=== PATIENT | male | born 1960 | race Caucasian/White ===

== ENCOUNTER 2017-02-18 14:37 | Emergency (ER) | payer MEDICARE ==
[~2017-02-18 14:37] MED LIST: TENORMIN 25 MG25 MG PO
[2017-02-18 15:58] LABS: HEMOGLOBIN 15.8 gm/dl (14.0-17.5); RED BLOOD COUNT 5.39 M/UL (4.20-5.50); WHITE BLOOD COUNT 7.9 K/UL (4.5-11.0)
[2017-02-18 16:18] LABS: BUN/CREATININE RATIO 27 (0-10)
== END 2017-02-18 17:40 | disposition home or self-care (01) ==
LOC: ER1 14:37
PROVIDERS: Emergency Medicine
DX: R11.10 Vomiting, unspecified (principal); I10 Essential (primary) hypertension; Z88.2 Allergy status to sulfonamides; Z88.5 Allergy status to narcotic agent
CPT/HCPCS: 36415; 74022; 80053; 82962; 83690; 84484; 85025; 96374; 99284; J2405; J7030

== ENCOUNTER 2020-11-04 14:07 | Emergency (ER) | payer MEDICARE ==
[~2020-11-04 14:07] MED LIST changes: +ALDACTONE 25MG25 MG PO; +AMITRIPTYLINE H75 MG PO; +ASMANEX HFA13 G1 INH; +ASPIRIN EC325 MG PO; +ASPIRIN EC81 MG PO; +BRILINTA 90 MG90 MG PO; +BRINTELLIX20 MG PO; +BUMETANIDE2 MG PO; +CO Q-10100 MG PO; +CYCLOSET0.8 MG PO; +ELAVIL 25 MG TA25 MG PO; +FIORICET PO; +HUMALOG 10100 UNITS/ SC; +HUMALOG100 UNIT/2 SQ; +HUMALOG100 UNIT/3 SC; +IBU600 MG PO; +IBUPROFEN600 MG PO; +IMDUR ER TAB 3030 MG PO; +IMDUR ER TAB 6060 MG PO; +IPRAT-ALBUT 0.5-3 ML INH; +K-TAB ER20 MEQ PO; +KAPSPARGO SPRI100 MG PO; +LIPITOR80 MG PO; +LISINOPRIL5 MG PO; +LOPRESSOR50 MG PO; +NASALIDE INH SO25 ML; +NEURONTIN600 MG PO; +NORVASC10 MG PO; +PHENERGAN 25 MG25 M1 PO; +PREDNISONE20 MG PO; +RANEXA500 MG PO; +SPIRIVA RESPIMAT4 GM INH; +SYMBICORT 80-10.2 GM INH; +TOUJEO MAX300 UNIT/1 SQ; +TURMERIC CURCUMIN PO; +VENTOLIN HFA 66.7 GM INH; +VICTOZA 3-0.6 MG/0.1 SQ; +VITAMIN C500 M1 PO; +XYZAL5 MG PO; +ZANAFLEX 4 MG TA4 MG PO
[2020-11-04 15:29] LABS: HEMOGLOBIN 15.4 gm/dl (14.0-17.5); RED BLOOD COUNT 6.17 M/UL (4.20-5.50); WHITE BLOOD COUNT 8.3 K/UL (4.5-11.0)
[2020-11-04 15:50] LABS: BUN/CREATININE RATIO 27 (0-10)
[2021-01-02] MEDS ORDERED: KEPPRA1000 MG PO (13:47)
[2021-02-27] MEDS ORDERED: MAXIDEX5 ML AU (13:43)
[2021-02-27] MEDS ORDERED: CILOXAN 0.3% O2.5 ML AU (13:44)
[2021-03-05] MEDS ORDERED: NEURONTIN600 MG PO (05:55)
== END 2020-11-04 19:05 | disposition short-term general hospital (02) ==
LOC: ER1 14:07
PROVIDERS: Emergency Medicine
DX: I63.9 Cerebral infarction, unspecified (principal); R29.810 Facial weakness; G81.94 Hemiplegia, unspecified affecting left nondominant side; R29.703 NIHSS score 3; E87.1 Hypo-osmolality and hyponatremia; R79.89 Other specified abnormal findings of blood chemistry; I10 Essential (primary) hypertension; E11.9 Type 2 diabetes mellitus without complications; Z95.1 Presence of aortocoronary bypass graft; Z86.73 Personal history of transient ischemic attack (TIA), and cerebral infarction without residual deficits; Z20.822 Contact with and (suspected) exposure to COVID-19
CPT/HCPCS: 36415; 70450; 70496; 70498; 71045; 80053; 82550; 82553; 82962; 83874; 84484; 85025; 85610; 85730; 93005; 99285; Q9967; U0002

== ENCOUNTER 2020-11-19 17:28 | Emergency (ER) | payer MEDICARE ==
[2021-01-02] MEDS ORDERED: KEPPRA1000 MG PO (13:47)
[2021-02-27] MEDS ORDERED: MAXIDEX5 ML AU (13:43)
[2021-02-27] MEDS ORDERED: CILOXAN 0.3% O2.5 ML AU (13:44)
[2021-03-05] MEDS ORDERED: NEURONTIN600 MG PO (05:55)
== END 2020-11-19 18:27 | disposition admitted as inpatient to this hospital (09) ==
LOC: ER1 17:28
DX: S41.112A Laceration without foreign body of left upper arm, initial encounter (principal); E11.9 Type 2 diabetes mellitus without complications; Z79.4 Long term (current) use of insulin; Z95.1 Presence of aortocoronary bypass graft; Z79.82 Long term (current) use of aspirin; Z88.2 Allergy status to sulfonamides; Z88.5 Allergy status to narcotic agent; Z88.8 Allergy status to other drugs, medicaments and biological substances; Z91.041 Radiographic dye allergy status; X50.3XXA Overexertion from repetitive movements, initial encounter; Y92.009 Unspecified place in unspecified non-institutional (private) residence as the place of occurrence of the external cause
CPT/HCPCS: 99283

== ENCOUNTER 2020-12-09 14:24 | Emergency (ER) | payer MEDICARE ==
[2020-12-09 15:09] LABS: HEMOGLOBIN 13.1 gm/dl (14.0-17.5); RED BLOOD COUNT 5.08 M/UL (4.20-5.50); WHITE BLOOD COUNT 7.2 K/UL (4.5-11.0)
[2020-12-09 15:33] LABS: BUN/CREATININE RATIO 19 (0-10)
[2021-01-02] MEDS ORDERED: KEPPRA1000 MG PO (13:47)
[2021-02-27] MEDS ORDERED: MAXIDEX5 ML AU (13:43)
[2021-02-27] MEDS ORDERED: CILOXAN 0.3% O2.5 ML AU (13:44)
[2021-03-05] MEDS ORDERED: NEURONTIN600 MG PO (05:55)
== END 2020-12-09 16:30 | disposition home or self-care (01) ==
LOC: ER1 14:24
PROVIDERS: Emergency Medicine
DX: I63.9 Cerebral infarction, unspecified (principal); R29.810 Facial weakness
CPT/HCPCS: 70450; 80053; 82550; 82553; 82962; 83874; 84484; 85025; 85610; 85730; 93005; 96374; 99285; J2997; Q9967

== ENCOUNTER 2021-02-16 21:20 | Emergency (ER) | payer MEDICARE ==
[~2021-02-16 21:20] MED LIST changes: +KEPPRA1000 MG PO
[2021-02-16 22:08] LABS: HEMOGLOBIN 13.4 gm/dl (14.0-17.5); RED BLOOD COUNT 5.18 M/UL (4.20-5.50); WHITE BLOOD COUNT 7.1 K/UL (4.5-11.0)
[2021-02-16 22:28] LABS: BUN/CREATININE RATIO 18 (0-10)
[2021-02-16] MEDS ORDERED: IMITREX50 MG PO (23:39)
[2021-02-27] MEDS ORDERED: MAXIDEX5 ML AU (13:43)
[2021-02-27] MEDS ORDERED: CILOXAN 0.3% O2.5 ML AU (13:44)
[2021-03-05] MEDS ORDERED: NEURONTIN600 MG PO (05:55)
== END 2021-02-17 00:25 | disposition home or self-care (01) ==
LOC: ER1 21:20
PROVIDERS: Physician Assistant Medical
DX: R41.82 Altered mental status, unspecified (principal); R51.9 Headache, unspecified; E78.5 Hyperlipidemia, unspecified; I10 Essential (primary) hypertension; Z86.73 Personal history of transient ischemic attack (TIA), and cerebral infarction without residual deficits; Z95.1 Presence of aortocoronary bypass graft
CPT/HCPCS: 70450; 71045; 80053; 82550; 82553; 83874; 84484; 85025; 85610; 93005; 96374; 96375; 99285; J0780; J1885; J2060

== ENCOUNTER 2021-02-19 17:05 | Emergency (ER) | payer MEDICARE ==
[~2021-02-19] VITALS: Ht 177.8 cm; Wt 129.3 kg
[~2021-02-19 17:05] MED LIST changes: +IMITREX50 MG PO
[2021-02-19 18:10] LABS: HEMOGLOBIN 13.9 gm/dl (14.0-17.5); RED BLOOD COUNT 5.42 M/UL (4.20-5.50); WHITE BLOOD COUNT 6.4 K/UL (4.5-11.0)
[2021-02-19 18:30] LABS: BUN/CREATININE RATIO 12 (0-10)
[2021-02-27] MEDS ORDERED: MAXIDEX5 ML AU (13:43)
[2021-02-27] MEDS ORDERED: CILOXAN 0.3% O2.5 ML AU (13:44)
[2021-03-05] MEDS ORDERED: NEURONTIN600 MG PO (05:55)
== END 2021-02-20 19:00 | disposition home or self-care (01) ==
LOC: ER1 17:05
PROVIDERS: Internal Medicine
DX: G81.94 Hemiplegia, unspecified affecting left nondominant side (principal); E11.9 Type 2 diabetes mellitus without complications; J44.9 Chronic obstructive pulmonary disease, unspecified; I10 Essential (primary) hypertension; Z86.73 Personal history of transient ischemic attack (TIA), and cerebral infarction without residual deficits; Z90.49 Acquired absence of other specified parts of digestive tract; Z88.2 Allergy status to sulfonamides; Z88.5 Allergy status to narcotic agent
CPT/HCPCS: 70450; 70551; 80053; 82962; 84484; 85025; 85610; 85730; 93005; 96374; 96375; 99284; J0780; J1170; J1200

== ENCOUNTER 2021-03-02 15:27 | Emergency (ER) | payer MEDICARE ==
[~2021-03-02 15:27] MED LIST changes: +CILOXAN 0.3% O2.5 ML AU; +MAXIDEX5 ML AU
[2021-03-02 16:36] LABS: HEMOGLOBIN 13.1 gm/dl (14.0-17.5); RED BLOOD COUNT 5.33 M/UL (4.20-5.50)
[2021-03-02 16:55] LABS: BUN/CREATININE RATIO 20 (0-10)
[2021-03-02] MEDS ORDERED: PROTONIX40 MG PO (19:07)
[2021-03-02] MEDS ORDERED: IBUPROFEN800 MG PO (19:07)
[2021-03-05] MEDS ORDERED: NEURONTIN600 MG PO (05:55)
== END 2021-03-02 19:30 | disposition home or self-care (01) ==
LOC: ER1 15:27
PROVIDERS: Preventive Medicine Occupational Medicine
DX: S39.011A Strain of muscle, fascia and tendon of abdomen, initial encounter (principal); I25.10 Atherosclerotic heart disease of native coronary artery without angina pectoris; E11.9 Type 2 diabetes mellitus without complications; Z95.1 Presence of aortocoronary bypass graft; X58.XXXA Exposure to other specified factors, initial encounter; Z88.2 Allergy status to sulfonamides; Z88.5 Allergy status to narcotic agent; Z88.8 Allergy status to other drugs, medicaments and biological substances
CPT/HCPCS: 80053; 81001; 83690; 85025; 85652; 86140; 87086; 96374; 96375; 99284; J1170; J2405; J7030; Q9967

== ENCOUNTER 2021-03-05 09:11 | Observation (INO) | payer MEDICARE ==
[~2021-03-05] VITALS: Ht 177.8 cm; Wt 129.3 kg
[~2021-03-05 09:11] MED LIST changes: +IBUPROFEN800 MG PO; +PROTONIX40 MG PO
[2021-03-05 11:12] LABS: HEMOGLOBIN 13.7 gm/dl (14.0-17.5); RED BLOOD COUNT 5.29 M/UL (4.20-5.50); WHITE BLOOD COUNT 5.6 K/UL (4.5-11.0)
[2021-03-05 11:32] LABS: BUN/CREATININE RATIO 14 (0-10)
[2021-03-05] MEDS ORDERED: ACCOLATE20 MG PO (13:37)
[2021-03-05] MEDS ORDERED: ZESTRIL5 MG PO (13:38)
[2021-03-05] MEDS ORDERED: TOPROL XL200 MG PO (13:39)
[2021-03-05] MEDS ORDERED: HUMULIN R500 UNIT/1 SC (13:45)
[2021-03-05] MEDS ORDERED: AZELASTINE137 MCG/0. (13:48)
[2021-03-05] MEDS ORDERED: LAMICTAL25 MG PO (13:49)
[2021-03-05] MEDS ORDERED: VITAMIN E400 UNI1 PO (13:53)
[2021-03-05] MEDS ORDERED: DOCUSATE SODIU100 MG PO (13:53)
[2021-03-05] MEDS ORDERED: OZEMPIC1 MG/0.71 SC (22:23)
[2021-03-05] MEDS ORDERED: PLAVIX 75 MG TA75 MG PO (22:25)
[2021-03-05] MEDS ORDERED: DUPIXENT300 MG/2 M SQ (22:48)
[2021-03-05] MEDS ORDERED: OMEPRAZOLE20 MG PO (22:55)
[2021-03-06 03:46] LABS: HEMOGLOBIN 13.1 gm/dl (14.0-17.5); RED BLOOD COUNT 5.17 M/UL (4.20-5.50); WHITE BLOOD COUNT 6.9 K/UL (4.5-11.0)
[2021-03-06 04:28] LABS: BUN/CREATININE RATIO 14 (0-10)
[2021-03-07] MEDS ORDERED: IBUPROFEN800 MG PO (09:06)
== END 2021-03-07 16:14 | disposition home or self-care (01) ==
LOC: ER1 09:11 → CDU 11:52 → MED SURG 4 11:52
PROVIDERS: Physician Assistant; ADMIT Internal Medicine
DX: R20.0 Anesthesia of skin (principal); I25.10 Atherosclerotic heart disease of native coronary artery without angina pectoris; I25.5 Ischemic cardiomyopathy; E11.9 Type 2 diabetes mellitus without complications; I11.0 Hypertensive heart disease with heart failure; I50.22 Chronic systolic (congestive) heart failure; J44.9 Chronic obstructive pulmonary disease, unspecified; G43.909 Migraine, unspecified, not intractable, without status migrainosus; G40.909 Epilepsy, unspecified, not intractable, without status epilepticus; E78.5 Hyperlipidemia, unspecified; E66.2 Morbid (severe) obesity with alveolar hypoventilation; Z68.41 Body mass index [BMI] 40.0-44.9, adult; Z20.822 Contact with and (suspected) exposure to COVID-19; Z95.1 Presence of aortocoronary bypass graft; Z86.73 Personal history of transient ischemic attack (TIA), and cerebral infarction without residual deficits; Z79.82 Long term (current) use of aspirin; Z79.02 Long term (current) use of antithrombotics/antiplatelets; Z79.4 Long term (current) use of insulin; Z79.2 Long term (current) use of antibiotics; Z79.899 Other long term (current) drug therapy; Z95.5 Presence of coronary angioplasty implant and graft; Z88.2 Allergy status to sulfonamides; Z88.5 Allergy status to narcotic agent; Z88.8 Allergy status to other drugs, medicaments and biological substances; Z87.891 Personal history of nicotine dependence; Z87.09 Personal history of other diseases of the respiratory system
CPT/HCPCS: ECHO; 70450; 70551; 71045; 80048; 80053; 82550; 82553; 82962; 83874; 84484; 85025; 92610; 93005; 93306; 94640; 94664; 94760; 96374; 96376; 97161; 97165; 99285; G0378; J1170; U0002

== ENCOUNTER 2021-03-23 18:49 | Emergency (ER) | payer MEDICARE ==
[~2021-03-23 18:49] MED LIST changes: +ACCOLATE20 MG PO; +AZELASTINE137 MCG/0.; +DOCUSATE SODIU100 MG PO; +DUPIXENT300 MG/2 M SQ; +HUMULIN R500 UNIT/1 SC; +LAMICTAL25 MG PO; +OMEPRAZOLE20 MG PO; +OZEMPIC1 MG/0.71 SC; +PLAVIX 75 MG TA75 MG PO; +TOPROL XL200 MG PO; +VITAMIN E400 UNI1 PO; +ZESTRIL5 MG PO
[2021-03-23 20:28] LABS: RED BLOOD COUNT 5.42 M/UL (4.20-5.50); WHITE BLOOD COUNT 9.8 K/UL (4.5-11.0)
[2021-03-23 21:06] LABS: BUN/CREATININE RATIO 17 (0-10)
[2021-03-24] MEDS ORDERED: IBUPROFEN600 MG PO (00:12)
== END 2021-03-24 00:30 | disposition home or self-care (01) ==
LOC: ER1 18:49
PROVIDERS: Physician Assistant Medical
DX: R07.9 Chest pain, unspecified (principal); R11.2 Nausea with vomiting, unspecified; I11.9 Hypertensive heart disease without heart failure; J44.9 Chronic obstructive pulmonary disease, unspecified; Z90.49 Acquired absence of other specified parts of digestive tract
CPT/HCPCS: 71045; 80053; 82550; 82553; 83874; 83880; 84484; 85025; 93005; 96374; 96375; 99285; J1170; J2405

== ENCOUNTER 2021-07-21 17:20 | Emergency (ER) | payer MEDICARE ==
[2021-07-21 18:27] LABS: RED BLOOD COUNT 5.49 M/UL (4.20-5.50); WHITE BLOOD COUNT 7.6 K/UL (4.5-11.0)
[2021-07-21 18:54] LABS: BUN/CREATININE RATIO 12 (0-10)
[2021-07-21] MEDS ORDERED: HYDROCODON-ACE1 EAC4 PO (21:10)
[2021-07-21] MEDS ORDERED: PHENERGAN25 MG/1 ML INJ (21:20)
== END 2021-07-21 21:35 | disposition home or self-care (01) ==
LOC: ER1 17:20
PROVIDERS: Student in an Organized Health Care Education/Training Program
DX: R10.9 Unspecified abdominal pain (principal); I11.9 Hypertensive heart disease without heart failure; E11.9 Type 2 diabetes mellitus without complications; Z88.5 Allergy status to narcotic agent; Z20.822 Contact with and (suspected) exposure to COVID-19
CPT/HCPCS: 80053; 83605; 85025; 96374; 99284; J1170; Q9967; U0002

== ENCOUNTER 2021-07-30 20:56 | Observation (INO) | payer MEDICARE ==
[~2021-07-30] VITALS: Ht 177.8 cm; Wt 123.4 kg
[~2021-07-30 20:56] MED LIST changes: +HYDROCODON-ACE1 EAC4 PO; +PHENERGAN25 MG/1 ML INJ
[2021-07-30 21:34] LABS: HEMOGLOBIN 13.7 gm/dl (14.0-17.5); RED BLOOD COUNT 5.18 M/UL (4.20-5.50); WHITE BLOOD COUNT 9.4 K/UL (4.5-11.0)
[2021-07-30 21:59] LABS: BUN/CREATININE RATIO 14 (0-10)
[2021-07-30] MEDS ORDERED: PERCOCET 5/325 T1 EA PO (22:56)
[2021-07-31] MEDS ORDERED: ASPIRIN325 MG PO (02:54)
[2021-08-01 06:50] LABS: HEMOGLOBIN 12.2 gm/dl (14.0-17.5)
[2021-08-01 06:51] LABS: RED BLOOD COUNT 4.62 M/UL (4.20-5.50); WHITE BLOOD COUNT 5.2 K/UL (4.5-11.0)
[2021-08-01 09:10] LABS: BUN/CREATININE RATIO 17 (0-10)
== END 2021-08-02 12:18 | disposition home or self-care (01) ==
LOC: ER1 20:56 → CDU 07-31 00:20 → MED SURG 4 07-31 00:20
PROVIDERS: Family Medicine; Internal Medicine; ADMIT Internal Medicine
DX: R53.1 Weakness (principal); I95.1 Orthostatic hypotension; R74.8 Abnormal levels of other serum enzymes; I11.9 Hypertensive heart disease without heart failure; I25.10 Atherosclerotic heart disease of native coronary artery without angina pectoris; J44.9 Chronic obstructive pulmonary disease, unspecified; J96.11 Chronic respiratory failure with hypoxia; I25.5 Ischemic cardiomyopathy; G43.809 Other migraine, not intractable, without status migrainosus; E11.40 Type 2 diabetes mellitus with diabetic neuropathy, unspecified; K76.0 Fatty (change of) liver, not elsewhere classified; E66.2 Morbid (severe) obesity with alveolar hypoventilation; Z68.39 Body mass index [BMI] 39.0-39.9, adult; Z20.822 Contact with and (suspected) exposure to COVID-19; Z95.1 Presence of aortocoronary bypass graft; Z91.81 History of falling; Z86.73 Personal history of transient ischemic attack (TIA), and cerebral infarction without residual deficits; Z99.81 Dependence on supplemental oxygen; Z90.49 Acquired absence of other specified parts of digestive tract; Z96.653 Presence of artificial knee joint, bilateral; Z98.890 Other specified postprocedural states; Z87.891 Personal history of nicotine dependence
CPT/HCPCS: 36415; 36600; 71045; 80053; 80061; 82550; 82553; 82607; 82728; 82746; 82803; 82962; 83036; 83540; 83550; 83605; 83735; 83874; 84100; 84439; 84443; 84484; 84550; 85025; 86140; 93005; 94640; 94664; 94760; 96372; 96374; 96375; 96376; 97116-GP-CQ; 97162; 97530; 99285; G0378; J1650; J2550; J3475; U0002

== ENCOUNTER 2021-09-13 14:33 | Emergency (ER) | payer MEDICARE ==
[~2021-09-13 14:33] MED LIST changes: +ASPIRIN325 MG PO; +PERCOCET 5/325 T1 EA PO
[2021-09-13 15:42] LABS: HEMOGLOBIN 13.4 gm/dl (14.0-17.5); RED BLOOD COUNT 4.98 M/UL (4.20-5.50)
[2021-09-13 16:04] LABS: BUN/CREATININE RATIO 15 (0-10)
[2021-09-13] MEDS ORDERED: LASIX 40 MG TAB40 MG PO (17:30)
== END 2021-09-13 18:00 | disposition home or self-care (01) ==
LOC: ER1 14:33
PROVIDERS: Preventive Medicine Occupational Medicine
DX: I11.0 Hypertensive heart disease with heart failure (principal); I50.9 Heart failure, unspecified; I25.10 Atherosclerotic heart disease of native coronary artery without angina pectoris; E11.9 Type 2 diabetes mellitus without complications; Z95.1 Presence of aortocoronary bypass graft
CPT/HCPCS: 71045; 80053; 82550; 82553; 83874; 83880; 84484; 85025; 85652; 86140; 93005; 96374; 99285; J1940

== ENCOUNTER 2021-11-11 15:01 | Emergency (ER) | payer MEDICARE ==
[~2021-11-11 15:01] MED LIST changes: +LASIX 40 MG TAB40 MG PO
[2021-11-11 15:51] LABS: HEMOGLOBIN 13.5 gm/dl (14.0-17.5); RED BLOOD COUNT 4.97 M/UL (4.20-5.50); WHITE BLOOD COUNT 7.5 K/UL (4.5-11.0)
[2021-11-11 16:14] LABS: BUN/CREATININE RATIO 11 (0-10)
[2021-11-11] MEDS ORDERED: KEPPRA500 MG PO (22:06)
== END 2021-11-11 22:40 | disposition home or self-care (01) ==
LOC: ER1 15:01
PROVIDERS: Emergency Medicine
DX: G40.909 Epilepsy, unspecified, not intractable, without status epilepticus (principal); R29.701 NIHSS score 1; I25.10 Atherosclerotic heart disease of native coronary artery without angina pectoris; Z95.1 Presence of aortocoronary bypass graft; R09.02 Hypoxemia; R47.81 Slurred speech; E11.9 Type 2 diabetes mellitus without complications; Z20.822 Contact with and (suspected) exposure to COVID-19; E66.01 Morbid (severe) obesity due to excess calories
CPT/HCPCS: 36600; 70450; 70496; 70498; 71045; 80053; 80156; 81001; 82550; 82553; 82803; 83874; 84484; 85025; 85610; 85730; 93005; 94664; 96374; 99285; J1953; Q9967; U0002

== ENCOUNTER 2022-06-06 07:29 | Observation (INO) | payer MEDICARE ==
[~2022-06-06] VITALS: Ht 177.8 cm; Wt 136.5 kg
[~2022-06-06 07:29] MED LIST changes: +CLOPIDOGREL75 MG PO; +CYANOCOBAL1000 MCG/1 INJ; +DILAUDID2 MG PO; +DUPIXENT P300 MG/2 M SQ; +HYDROMORPHONE HC4 MG PO; +KEPPRA500 MG PO; +LAMICTAL100 MG PO; -LAMICTAL25 MG PO; +NORTRIPTYLINE H25 MG PO; +OFLOXACIN5 M1 EARBOTH; +POTASSIUM CHLO20 ME2 PO; +TIZANIDINE HCL4 MG PO
[2022-06-06 08:20] LABS: HEMOGLOBIN 13.6 gm/dl (14.0-17.5); RED BLOOD COUNT 5.13 M/UL (4.20-5.50); WHITE BLOOD COUNT 9.9 K/UL (4.5-11.0)
[2022-06-06 08:35] LABS: BUN/CREATININE RATIO 12 (0-10)
[2022-06-06] MEDS ORDERED: LAMICTAL100 MG PO (13:00)
[2022-06-06] MEDS ORDERED: NITROGLYCERIN4.9 GM SL (13:02)
[2022-06-06] MEDS ORDERED: PROAIR HFA8.5 GM INH (13:03)
[2022-06-06] MEDS ORDERED: VORT20TA PO (13:05)
[2022-06-06] MEDS ORDERED: DILAUDID2 MG PO (13:07)
[2022-06-06] MEDS ORDERED: HYDROMORPHONE HC4 MG PO (13:08)
[2022-06-06] MEDS ORDERED: ARTHRITIS PAIN150 GM TP (13:09)
[2022-06-06] MEDS ORDERED: ISOSORBIDE MON120 MG PO (13:12)
[2022-06-06] MEDS ORDERED: ASPIRIN EC81 MG PO (13:16)
[2022-06-06] MEDS ORDERED: VITAMIN E400 UNI4 PO (13:16)
[2022-06-06] MEDS ORDERED: COQ1050 MG PO (13:17)
[2022-06-06] MEDS ORDERED: VITAMIN D325 MC6 PO (13:17)
[2022-06-07 02:20] LABS: HEMOGLOBIN 12.2 gm/dl (14.0-17.5); RED BLOOD COUNT 4.64 M/UL (4.20-5.50); WHITE BLOOD COUNT 8.8 K/UL (4.5-11.0)
[2022-06-07 02:47] LABS: BUN/CREATININE RATIO 17 (0-10)
[2022-06-07] MEDS ORDERED: RANEXA500 MG PO (15:22)
--- NOTE | 2022-06-07 16:00 | NUR ---
PATIENT COMPLAINING OF CHEST PAIN . INFORMED DR GAMBOA , HE SAID TO GIVE THE PATIENT A NITRO AND CARDIOLOGY IS GOING TO COME SEE HIM. PATIENT VITALS WERE NORMAL AND NO OTHER DISTRESS NOTED.
== END 2022-06-08 13:30 | disposition home or self-care (01) ==
LOC: ER1 07:29 → M/S 11:43 → CDU 11:43 → M/S 14:14
PROVIDERS: Family Medicine; Physician Assistant Medical; ADMIT Internal Medicine
DX: I25.119 Atherosclerotic heart disease of native coronary artery with unspecified angina pectoris (principal); E11.9 Type 2 diabetes mellitus without complications; I10 Essential (primary) hypertension; E78.5 Hyperlipidemia, unspecified; G89.29 Other chronic pain; G40.909 Epilepsy, unspecified, not intractable, without status epilepticus; E66.9 Obesity, unspecified; Z68.41 Body mass index [BMI] 40.0-44.9, adult; Z79.4 Long term (current) use of insulin; Z79.899 Other long term (current) drug therapy; Z79.82 Long term (current) use of aspirin; Z79.02 Long term (current) use of antithrombotics/antiplatelets; Z86.73 Personal history of transient ischemic attack (TIA), and cerebral infarction without residual deficits; Z87.891 Personal history of nicotine dependence; Z88.2 Allergy status to sulfonamides; Z88.5 Allergy status to narcotic agent; Z88.8 Allergy status to other drugs, medicaments and biological substances; Z95.1 Presence of aortocoronary bypass graft; Z95.5 Presence of coronary angioplasty implant and graft
CPT/HCPCS: 36415; 71045; 80048; 80053; 82550; 82553; 83735; 84484; 85025; 85027; 85610; 93005; 94640; 94664; 94760; 99285; G0378